=== PATIENT | male | born 1940 | race Caucasian/White ===

== ENCOUNTER 2018-08-02 03:47 | Emergency (ER) | payer MEDICARE ==
[~2018-08-02] VITALS: Ht 177.8 cm; Wt 111.1 kg
[2018-08-02] MEDS ORDERED: INSLAN SQ (04:11)
[2018-08-02] MEDS ORDERED: LEVE250T55 PO (04:11)
[2018-08-02] MEDS ORDERED: INSU100V SQ (04:11)
[2018-08-02] MEDS ORDERED: DEXA0.5T2 PO (04:11)
[2018-08-02] MEDS ORDERED: ROSU10 PO (04:11)
[2018-08-02] MEDS ORDERED: UMEC1DIS IH (04:11)
[2018-08-02] MEDS ORDERED: LEVO25TA9 PO (04:11)
[2018-08-02] MEDS ORDERED: AUD NEB (04:11)
[2018-08-02] MEDS ORDERED: MEPE50TA7 PO (04:11)
[2018-08-02 04:46] LABS: BASOPHILS % (AUTO) 0.2 % (0.0-2.0); EOSINOPHILS % (AUTO) 0.2 % (1.0-6.0); HEMOGLOBIN 13.4 g/dL (13.5-17.5); LYMPHOCYTES # (AUTO) 0.5 K/uL (1.0-4.8); LYMPHOCYTES % (AUTO) 5.4 % (22.0-44.0); MEAN CORPUSCULAR HEMOGLOBIN 29.6 pg (26.0-34.0); MEAN CORPUSCULAR HGB CONC 33.5 G/dL (31.0-37.0); MEAN CORPUSCULAR VOLUME 88 fL (80-100); MONOCYTES # (AUTO) 0.7 K/uL (0.1-1.0); MONOCYTES % (AUTO) 7.5 % (2.0-9.0); NEUTROPHILS # (AUTO) 8.2 K/uL (1.8-7.7); NEUTROPHILS % (AUTO) 86.7 % (40.0-70.0); PLATELET COUNT (AUTO) 185 K/uL (150-450); RED BLOOD CELL COUNT(AUTO) 4.53 MIL/uL (4.50-5.90); RED CELL DISTRIBUTION WIDTH 16.4 % (11.5-14.5)
[2018-08-02 04:55] LABS: CALCIUM, TOTAL 8.2 mg/dL (8.8-10.5); CREATININE 2.15 mg/dL (0.60-1.30); POTASSIUM 5.8 mmol/L (3.5-5.1)
[2018-08-02 04:56] LABS: PROTHROMBIN TIME 10.8 SEC (9.4-11.6)
[2018-08-02 05:00] LABS: ALBUMIN 3.4 g/dL (3.4-5.0); BILIRUBIN,TOTAL 0.5 mg/dL (0.1-1.0); TOTAL PROTEIN, SERUM 6.6 g/dL (6.4-8.2)
[2018-08-02] MEDS ORDERED: DEXTROSE 50%-WATER 25 GM/50 ML SYRINGE IVP ONE (06:00)
[2018-08-02] MEDS ORDERED: SODIUM POLYSTYRENE SULFONATE 15 GM/60 ML SUSPENSION BOTTLE PO ONE (06:00)
[2018-08-02] MEDS ORDERED: INSULIN REGULAR, HUMAN 100 UNITS/ML IVP ONE (06:00)
[2018-08-02 06:12] VITALS: BP 155/74
== END 2018-08-02 06:25 | disposition home or self-care (01) ==
LOC: EMS 03:47
DX: R04.0 Epistaxis (principal); E87.5 Hyperkalemia; I48.91 Unspecified atrial fibrillation; J44.9 Chronic obstructive pulmonary disease, unspecified; E11.9 Type 2 diabetes mellitus without complications; E78.00 Pure hypercholesterolemia, unspecified; I10 Essential (primary) hypertension; I25.2 Old myocardial infarction; Z79.4 Long term (current) use of insulin
CPT/HCPCS: 84132; 93005